=== PATIENT | male | born 1990 | race Two or more races ===

== ENCOUNTER → 2022-07-30 | Outpatient (REF) | payer OTHER | LOC: M SMT 13:11 | PROVIDERS: ATTEND Urology | DX: Z30.2 Encounter for sterilization (principal) ==

== ENCOUNTER → 2022-10-09 | Outpatient (REF) | payer OTHER ==
[2022-10-09 11:46] LABS: SEMEN APPEARANCE OPAQUE (OPAQUE); SEMEN VISCOSITY LIQUID (LIQUID); SEMEN VOLUME 2.4 ml (2.0-5.0); SEMEN pH 8.5 (7.0-8.0); WBC CONCENTRATION >1 M/ml (<=1 M/ml)
== END ==
LOC: M SMT 10:15
PROVIDERS: ATTEND Urology
DX: Z30.2 Encounter for sterilization (principal)

== ENCOUNTER 2023-03-28 04:23 | Emergency (ER) | payer OTHER ==
[~2023-03-28] VITALS: Ht 170.2 cm; Wt 78.6 kg
[2023-03-28 04:24] VITALS: BP 138/82; TEMP 98.3; O2SAT 97
== END 2023-03-28 05:25 | disposition left against medical advice (07) ==
LOC: M ED 04:23
DX: S09.90XA Unspecified injury of head, initial encounter (principal); X58.XXXA Exposure to other specified factors, initial encounter; Y92.89 Other specified places as the place of occurrence of the external cause; Y93.89 Activity, other specified; Y99.8 Other external cause status; Z53.21 Procedure and treatment not carried out due to patient leaving prior to being seen by health care provider

== ENCOUNTER 2024-10-14 12:32 | Emergency (ER) | payer OTHER ==
[~2024-10-14] VITALS: Ht 172.7 cm; Wt 85.1 kg
[2024-10-14 12:35] VITALS: BP 133/86; TEMP 99.2; O2SAT 97
[2024-10-14] MEDS ORDERED: RIZA5TAB2 (12:40)
[2024-10-14] MEDS: KETOROLAC 60MG 2ML VIAL IM ONE (14:31)
[2024-10-14] MEDS ORDERED: CARB100T11 PO (15:24)
[2024-10-14] MEDS ORDERED: IBUP-1022 PO (15:30)
== END 2024-10-14 15:35 | disposition home or self-care (01) ==
LOC: M ED 12:32
DX: G50.0 Trigeminal neuralgia (principal)
CPT/HCPCS: 85652; 86140; 96372; 99283; J1885